=== PATIENT | male | born 1990 | race African-American/Black ===

== ENCOUNTER 2020-01-11 10:16 | Emergency (ER) | payer SELFPAY ==
[~2020-01-11] VITALS: Ht 185.4 cm; Wt 81.6 kg
--- NOTE | 2020-01-11 10:20 | NUR ---
Patient to ER bed 8 to gown for evaluation. Side rails up.
[2020-01-11 10:23] VITALS: BP_SYST 129
--- NOTE | 2020-01-11 10:23 | NUR ---
Patient presented to ER C/O chest pain with cough. Patient A&Ox4, BIB BLS with [facility] to ER from [facility], afebrile, skin pink and warm, cough, congestion, denies pain, denies N/V/D. Patient states he has cough, congestion and CP with cough x2 days.
--- NOTE | 2020-01-11 10:30 | NUR ---
ZAIRA Soria at bedside examining patient.
--- NOTE | 2020-01-11 10:31 | NUR ---
EKG performed at by Soo MILLER. Physician given copy of EKG for review.
[2020-01-11 11:51] VITALS: BP_SYST 128
--- NOTE | 2020-01-11 11:51 | NUR ---
Patient given written and verbal discharge instructions and verbalizes understanding. ER MD discussed with patient the results and treatment provided. Patient in stable condition. ID arm band removed. Rx of Albuterol given. Patient educated on pain management and to follow up with PMD. Pain Scale 0/10. Opportunity for questions provided and answered. Medication side effect fact sheet provided. Pt discharged in the custody with Eakly Abru.
== END 2020-01-11 11:51 ==
LOC: SED 10:16
DX: R05 Cough (principal); Z59.0 Homelessness
CPT/HCPCS: 36415; 71045; 86710; 99284